=== PATIENT | male | born 1965 | race Caucasian/White ===

== ENCOUNTER 2017-03-11 09:26 | Inpatient (IN) | payer BC, OTHER ==
[2017-03-04 08:27] VITALS: BMI 32.0
--- NOTE | 2017-03-04 09:01 | PAT Medication Instructions ---
Service Date Mar 04, 2017. Current Home Medication List Ascorbic Acid (Vitamin C), 1,000 MG PO QAM Etodolac (Etodolac), 1 TAB PO QAM Naproxen (Aleve), 440 MG PO PRN Medication Instructions For Your Scheduled Surgery Etodolac (Etodolac), 1 TAB PO QAM (stopped already) Naproxen (Aleve), 440 MG PO PRN (stopped already) - Hold the following medications the morning of surgery: Ascorbic Acid (Vitamin C), 1,000 MG PO QAM If you have any questions please call us at [phone] or [phone] ( Marcela) or [phone]
--- NOTE | 2017-03-04 09:34 | DIAGNOSTIC IMAGING REPORT ---
CHEST PREADMISSION(PA/LAT) CLINICAL HISTORY: PAT preoperative evaluation COMPARISON STUDY: No previous studies for comparison. FINDINGS: The bones soft tissues and hemidiaphragms are normal. The cardiomediastinal silhouette is normal. The lungs are clear. The pulmonary vasculature is normal. IMPRESSION: Negative chest. Electronically signed by: Binh Marie M.D. 03/04/2017 9:32 AM Dictated Date/Time: 03/04/2017 9:30 AM
[2017-03-04 10:31] LABS: BASO % 0.5 %; BASO ABS # 0.04 K/uL (0-0.2); COMPLETE YES; EOS % 0.9 %; HEMATOCRIT 44.4 % (42-52); IG% 0.1 %; LYMPH % 18.9 %; LYMPH ABS # 1.42 K/uL (1.2-3.4); MEAN CELL VOLUME 86.4 fL (80-100); MEAN CORPUSCULAR HEMOGLOBIN 30.7 pg (25-34); MEAN CORPUSCULAR HGB CONC 35.6 g/dl (32-36); MEAN PLATELET VOLUME 10.9 fL (7.4-10.4); MONO % 9.7 %; NEUT % 69.9 %; PLATELET COUNT 226 K/uL (130-400); RED BLOOD COUNT 5.14 M/uL (4.7-6.1); WHITE BLOOD COUNT 7.53 K/uL (4.8-10.8)
[2017-03-04 10:33] LABS: URINE APPEARANCE CLEAR (CLEAR); URINE BILIRUBIN NEG (NEG); URINE COLOR YELLOW; URINE NITRITE NEG (NEG); URINE SPECIFIC GRAVITY 1.009 (1.000-1.030); UROBILINOGEN NEG (NEG)
[2017-03-04 10:46] LABS: MANUAL MICROSCOPIC REQUIRED? NO; REVIEW REQ? NO
[2017-03-04 11:22] LABS: CALCIUM 8.7 mg/dl (8.5-10.1); CREATININE 0.83 mg/dl (0.60-1.40); POTASSIUM 4.1 mmol/L (3.5-5.1)
[~2017-03-11] VITALS: Ht 170.2 cm; Wt 93.3 kg
[2017-03-11] VITALS (7 sets, daily range): BP systolic 111–155; BP diastolic 66–97; PULSE 76–102; TEMP 36.4–37.3; O2SAT 94–98; Ht 170.2 cm; Wt 93.3 kg
[~2017-03-11 09:26] MED LIST: ASCO10003 PO; CEFAZOLIN 2000 MG/60 ML D5W IV SCH; ETOD400T PO; FENTANYL CITRATE INJ 50 MCG/1 ML 2 ML VIAL ONE; HEPARIN SOD 5000 UNIT/0.5 ML CARP SQ SCH; HYDROmorphone INJ 2 MG/ML SYR/VIAL ONE; LACTATED RINGER'S 1000ML 1,000 ML IV SCH; LACTATED RINGER'S 1000ML 500 ML IV ONE; MIDAZOLAM HCL 1 MG/ML 2ML VIAL ONE; NAPR1TAB9 PO
--- NOTE | 2017-03-11 11:36 | History & Physical Bridge Note ---
H&P Re-Evaluation Bridge Note: I have examined the patient, reviewed the History & Physical and in the interval since the performance of the History & Physical I have noted the following changes of clinical significance: No changes noted
[2017-03-11] MEDS ORDERED: BUPIVACAINE 0.5 % 5 MG/1 ML MPF 30ML VIAL ONE (11:48)
[2017-03-11] MEDS ORDERED: KETOROLAC TROMETHAMINE 30 MG/ML VIAL IV. PRN ×2 (12:00→15:45)
[2017-03-11] MEDS ORDERED: ATROPINE SULFATE 0.1 MG/ML 5ML SYR IV PRN (12:00)
[2017-03-11] MEDS ORDERED: HYDROmorphone INJ 2 MG/ML SYR/VIAL IV PRN (12:00)
[2017-03-11] MEDS ORDERED: ONDANSETRON INJ 2 MG/ML 2 ML VIAL IV PRN ×2 (12:00→15:45)
[2017-03-11] MEDS ORDERED: LABETALOL HCL IV 5 MG/ML 20ML IV PRN (12:00)
[2017-03-11] MEDS ORDERED: PROMETHAZINE HCL INJ 12.5 MG in SODIUM CHLORIDE 0.9% 50ML 50 ML IV PRN (12:00)
[2017-03-11] MEDS ORDERED: HEPARIN SOD 5000 UNIT/0.5 ML CARP ONE (12:18)
[2017-03-11] MEDS ORDERED: ACETAMINOPHEN 1000 MG/100 ML IV IV ONE (12:33)
[2017-03-11] MEDS ORDERED: PHENYLEPHRINE 100MCG/ML 5ML SYR ONE (13:04)
[2017-03-11] MEDS ORDERED: DEXAMETHASONE SOD INJ 4 MG/ML VIAL ONE (13:04)
[2017-03-11] MEDS ORDERED: ROCURONIUM BROMIDE 10 MG/ML 5 ML VIAL ONE ×2 (13:04→15:27)
[2017-03-11] MEDS ORDERED: NEOSTIGMINE METHYLSULFATE 5 MG/5 ML SYR ONE (13:04)
[2017-03-11] MEDS ORDERED: ONDANSETRON INJ 2 MG/ML 2 ML VIAL ONE (13:04)
[2017-03-11] MEDS ORDERED: GLYCOPYRROLATE INJ 0.2 MG/ML VIAL ONE (13:04)
[2017-03-11] MEDS ORDERED: PROPOFOL IV EMULSION 10 MG/ML 20 ML VIAL IV ONE ×2 (13:04→15:27)
[2017-03-11] MEDS ORDERED: LIDOCAINE HCL 2% 2 ML VIAL (20MG/ML) ONE (13:04)
[2017-03-11] MEDS ORDERED: LABETALOL HCL IV 5 MG/ML 20ML IV ONE (15:16)
--- NOTE | 2017-03-11 15:44 | [facility] Post Operative Brief Note ---
Immediate Operative Summary Operative Date Mar 11, 2017. Pre-Operative Diagnosis cT2b Maria De Jesus 3+4 Prostate Cancer Post-Operative Diagnosis cT2b Bird In Hand 3+4 Prostate Cancer Procedure(s) Performed Robot-Assisted Laparoscopic Radical Retropubic Prostatectomy with Bilateral Pelvic lymph Node Dissection Surgeon Tamiko Elliott MD Physician Practice Coordinator Surgeon(s) Aileen Molina PA-C Estimated Blood Loss 125 ML Fluids (cc crystalloids) 1300 crystalloid Specimens Prostate + seminal vesicles Periprostatic Fat C: Left pelvic lymph node, has clip D: Right pelvic lymph node Drains 18 fr silicone delvalle, 10 cc H2O, #10 CHRISTY LLQ Anesthesia GAET + local Complication(s) None Disposition Recovery Room / PACU
[2017-03-11] MEDS ORDERED: OXYCODONE/ACETAMINOPHEN 7.5-325 TAB PO PRN (15:45)
[2017-03-11] MEDS ORDERED: ACETAMINOPHEN IV 100 ML IV PRN (15:45)
[2017-03-11] MEDS ORDERED: OXYBUTYNIN CHLORIDE 5 MG TAB PO PRN (15:45)
--- NOTE | 2017-03-11 15:56 | Anesthesiology Progress Note ---
Anesthesia Post Op Note Date & Time Mar 11, 2017 at 15:55 Vital Signs Pain Intensity: 0 Vital Signs Past 12 Hours Date Time Temp Pulse Resp B/P Pulse Ox O2 Delivery O2 Flow Rate FiO2 03/11/17 15:47 79 14 113/70 95 Mask 10 03/11/17 15:38 36.2 77 14 102/57 96 Mask 10 03/11/17 09:42 36.8 81 20 155/97 95 Room Air Notes Mental Status: alert / awake / arousable, participated in evaluation Pt Amnestic to Procedure: Yes Nausea / Vomiting: adequately controlled Pain: adequately controlled Airway Patency, RR, SpO2: stable & adequate BP & HR: stable & adequate Hydration State: stable & adequate Anesthetic Complications: no major complications apparent Pt doing well.
[2017-03-11 15:57] LABS: HEMATOCRIT 43.9 % (42-52); MEAN CORPUSCULAR HEMOGLOBIN 31.6 pg (25-34); MEAN PLATELET VOLUME 10.7 fL (7.4-10.4); PLATELET COUNT 209 K/uL (130-400); RED BLOOD COUNT 4.88 M/uL (4.7-6.1); WHITE BLOOD COUNT 17.38 K/uL (4.8-10.8)
[2017-03-11 16:00] LABS: MEAN CORPUSCULAR HGB CONC 35.1 g/dl (32-36)
[2017-03-11 16:38] LABS: BUN/CREATININE RATIO 15.3 (10-20); POTASSIUM 4.5 mmol/L (3.5-5.1)
[2017-03-11] MEDS: LACTATED RINGER'S 1000ML 1,000 ML IV SCH ×2 (16:50→22:43)
[2017-03-11 17:20] LABS: CALCIUM 8.5 mg/dl (8.5-10.1)
[2017-03-11 17:50] LABS: PARTIAL THROMBOPLASTIN RATIO 0.9; PROTHROMBIN TIME (PATIENT) 10.6 SECONDS (9.0-12.0)
--- NOTE | 2017-03-11 18:24 | OPERATIVE REPORT ---
DATE OF OPERATION: 03/11/2017 PREOPERATIVE DIAGNOSIS: Clinical T2 [place] 3+4 adenocarcinoma of the prostate. POSTOPERATIVE DIAGNOSIS: Same. PROCEDURE: Robotic-assisted laparoscopic radical retropubic prostatectomy with bilateral pelvic lymph node dissection and a right-sided nerve sparing dissection. SURGEON: Dr. Reji Elliott. ASSISTANCE COORDINATOR: PHILIP Gurrola ANESTHESIA: General anesthesia with endotracheal intubation plus local at port sites. ESTIMATED BLOOD LOSS: 125 mL. IV FLUIDS: 1300 mL of crystalloid. SPECIMENS SENT TO PATHOLOGY: Prostate plus seminal vesicles, periprostatic fat, left pelvic lymph node packet with clip in place and right pelvic lymph node packet. DRAINS LEFT IN PLACE: Include a 18 Lao silicone catheter with 10 mL of sterile water in the balloon to gravity drainage and #10 CHRISTY drain in the left lower quadrant to bulb drainage. FINDINGS: Watertight anastomosis, small prostate, no evidence of vascular or bowel injury after completion of the case with excellent hemostasis. BRIEF HISTORY: Mr. Lora is a pleasant 51-year-old male who I have seen as an outpatient in consultation for a new diagnosis of [place] 3+4 prostate cancer and a palpable left-sided nodule on his prostate gland. Prostate biopsies demonstrated Maria De Jesus 3+4 disease on the left side of the gland. Please see H\T\P for further details. After discussion of risks and benefits of various forms of management, he has decided upon a robotic prostatectomy to manage his disease. SCDs and subcutaneous heparin are used for DVT prophylaxis and intravenous cephalosporins for antibiotic coverage. Informed consent reviewed with the patient preoperatively today. DESCRIPTION OF PROCEDURE: The patient was properly identified and brought to the operative suite after identification of appropriate consent on the chart, general anesthesia with endotracheal intubation was initiated and the patient was prepped and draped in a standard fashion for this procedure. time cycle operator-out procedure was followed. All port sites were anesthetized with local prior to incision. A 12 mm supraumbilical port was made and using a visual obturator, abdomen was entered under direct visualization using a 0 degrees laparoscope. Abdomen was insufflated to 15 mmHg and noted to be free of any injuries on placement of the port. Normal intra-abdominal anatomy with a history of right inguinal hernia repair was appreciated. Ports were placed for a 4th arm robotic template including 2 left-sided 7 mm ports, a right-sided 7 mm robotic port, and a 5 and 12 mm clerical assistant port. The patient was placed into Trendelenburg and robot was brought in and docked. A 0 degrees lens was used to drop the bladder down to the level of the pubic bone. Prostate was defatted and periprostatic fat was sent for pathologic analysis. Endopelvic fascia was sharply entered on both sides and dissection was carried out to the level of the apex of the prostate. Dorsal vein was skeletonized and then controlled using 0 Vicryl suture on a CT1 needle in a [id number] fashion. Attention was turned to the bladder neck which was placed on traction using the fourth arm and a 30 degree down lens. This was divided down to the level of the patient's Dennis catheter, which was then used for anterior traction on the prostate gland. The patient was noted to have a relatively thickened muscular bladder neck with no median lobe component or other variations in anatomy. The posterior bladder neck was divided and dropped until the vas deferens were encountered in the midline. At this point, the prostatic pedicles and inferior vasculature of the bladder were controlled using cold Weck clips and cold scissors. Nerve sparing dissection was initiated on the right hand side. On the left hand side, a plane leaving in situ approximately 50% of the neurovascular bundle was defined using Weck clips. The vas deferens were divided and used for traction. Seminal vesicles, noted to be quite redundant were dissected free on both sides down to the level of the tips. Cold scissors were then used to drop the rectum up to the level of the apex of the prostate gland. Nerve sparing dissection was completed on the right hand side up to the level of the apex and nerve sparing dissection was completed on the right hand side up to the level of the apex and dissection was completed on the left hand side as well. Attention was turned to the dorsal vein which was then divided using hot scissors. A well defined urethra was skeletonized and then divided. Rectourethralis fibers were also divided and the prostate was brought up into the abdominal cavity and placed within an EndoCatch bag for retrieval at the end of the case. Excellent hemostasis within the confines of the pelvis was appreciated. Rectum was insufflated under saline irrigation and noted to be free of any unrecognized injuries. Attention was turned to the pelvic lymph node dissection component of the case. The nodes over the external iliac artery and vein were dissected free and the obturator canal was emptied using the external iliac vein, pelvic sidewall and the obturator nerve for the confines of dissection. Clips and cautery were used as necessary for control of vessels and large lymphatics. Care was taken to avoid any injury or irritation to the obturator nerve, which was noted to be intact at the end of the case on both sides after completion of dissection. Both sides were completed in a similar fashion and left-sided lymph node packet was tagged using a clip for identification after extraction. Both lymph node packets were placed within the second EndoCatch bag for retrieval after completion. Attention was then turned to the pelvis where again excellent hemostasis was appreciated. A circumferential running anastomosis was performed using a double armed V-Loc suture to the urethra. Again, a continent bladder neck aperture was appreciated. Care was taken to ensure that the mucosa was well included in the patient's muscular bladder neck closure. Dennis catheter easily entered the bladder throughout the case without resistance or difficulties and a silicone catheter was visualized entering the bladder prior to completion of the anastomosis. Anastomosis was tested with greater than 120 mL of sterile irrigant and noted to be watertight. 10 mL of sterile water were placed within the balloon. Fourth arm was removed and #10 CHRISTY drain was brought in via the fourth arm port. This was placed within the confines of the pelvis while avoiding placing it directly over the anastomosis. Robotic instruments were removed and robot was dedocked. Camera was brought in via the clerical assistant port and string to the EndoCatch bag was brought up through the supraumbilical incision. This was enlarged sufficiently to allow for removal of the specimens. Supraumbilical incision was closed at the fascial level using 0 Vicryl suture on a UR-5 and UR-6 needle. Skin incisions were closed using Monocryl and Dermabond and the drain was secured in place using a 2-0 silk suture. Excess carbon dioxide gas had been removed from the abdomen prior to completion of the closure. Anesthesia was reversed. The patient was transferred to recovery room in stable condition. FOLLOWUP CARE: The patient will be admitted to the floor for standard postoperative management. I attest to the content of the Intraoperative Record and any orders documented therein. Any exceptio ns are noted below.
[2017-03-11] MEDS: CEFAZOLIN IV 2,000 MG in DEXTROSE 5% 50ML 50 ML IV SCH (20:06)
[2017-03-11] MEDS: DOCUSATE SODIUM 100 MG CAP PO SCH (21:00)
[2017-03-11] MEDS: HEPARIN SOD 5000 UNIT/0.5 ML CARP SQ SCH (22:45)
[2017-03-11] MEDS: HYDROmorphone INJ 1 MG/ML SYR IV PRN (23:48)
[2017-03-12] MEDS: HYDROmorphone INJ 1 MG/ML SYR IV PRN (03:21)
[2017-03-12 04:00] VITALS: BP 117/76; PULSE 66; TEMP 36.8; O2SAT 97
[2017-03-12] MEDS: CEFAZOLIN IV 2,000 MG in DEXTROSE 5% 50ML 50 ML IV SCH ×2 (04:09→12:15)
[2017-03-12] MEDS: LACTATED RINGER'S 1000ML 1,000 ML IV SCH ×2 (04:09→12:15)
[2017-03-12 07:48] VITALS: BP 126/74; PULSE 67; TEMP 36.8; O2SAT 93
[2017-03-12 07:54] LABS: BASO % 0.1 %; BASO ABS # 0.02 K/uL (0-0.2); COMPLETE YES; EOS % 0.1 %; HEMATOCRIT 42.3 % (42-52); IG% 0.3 %; LYMPH % 10.3 %; LYMPH ABS # 1.57 K/uL (1.2-3.4); MEAN CELL VOLUME 90.4 fL (80-100); MEAN CORPUSCULAR HEMOGLOBIN 30.1 pg (25-34); MEAN CORPUSCULAR HGB CONC 33.3 g/dl (32-36); MEAN PLATELET VOLUME 10.5 fL (7.4-10.4); MONO % 9.7 %; NEUT % 79.5 %; PLATELET COUNT 196 K/uL (130-400); RED BLOOD COUNT 4.68 M/uL (4.7-6.1); WHITE BLOOD COUNT 15.19 K/uL (4.8-10.8)
--- NOTE | 2017-03-12 08:13 | Anesthesiology Progress Note ---
Anesthesia Post Op Note Date & Time Mar 12, 2017 at 08:12 Vital Signs Pain Intensity: 6.0 Vital Signs Past 12 Hours Date Time Temp Pulse Resp B/P Pulse Ox O2 Delivery O2 Flow Rate FiO2 03/12/17 07:48 36.8 67 16 126/74 93 Room Air 03/12/17 04:00 36.8 66 16 117/76 97 Room Air 03/11/17 23:50 Room Air 03/11/17 23:36 37.1 76 18 117/71 98 Room Air Notes Mental Status: alert / awake / arousable, participated in evaluation Pt Amnestic to Procedure: Yes Nausea / Vomiting: adequately controlled Pain: adequately controlled Airway Patency, RR, SpO2: stable & adequate BP & HR: stable & adequate Hydration State: stable & adequate Anesthetic Complications: no major complications apparent
[2017-03-12 08:37] LABS: CREATININE 0.77 mg/dl (0.60-1.40); POTASSIUM 3.8 mmol/L (3.5-5.1)
--- NOTE | 2017-03-12 08:47 | Progress Note ---
Subjective Date of Service: Mar 12, 2017. Subjective Pt evaluation today including: conversation w/ patient, physical exam, chart review, lab review, review of inpatient medication list Pain: Mild, incisional PO Intake: Keisha clears, no emesis Voiding: delvalle catheter in place (urine clear) 51 yo male POD#1 s/p RALRP, BPLND. Intraop findings reviewed. Sat at side of bed yesterday, no ambulation yet. Labwork yesterday and this AM reviewed - wnl. Acceptable CHRISTY output, no other complaints. Review of Systems Constitutional: No chills, No fever Eyes: No worsening of vision Respiratory: No shortness of breath, No sputum, No wheezing Cardiac: No chest pain Abdomen: No nausea, No vomiting Male : + see HPI, No hematuria Neurologic: No memory loss, No paralysis Psychiatric: No depression symptoms, No insomnia Heme: No swollen lymph nodes Skin: No color change, No new/changing skin lesions Objective Vital Signs Date Time Temp Pulse Resp B/P Pulse Ox O2 Delivery O2 Flow Rate FiO2 03/12/17 07:48 36.8 67 16 126/74 93 Room Air 03/12/17 04:00 36.8 66 16 117/76 97 Room Air 03/11/17 23:50 Room Air 03/11/17 23:36 37.1 76 18 117/71 98 Room Air 03/11/17 19:33 36.8 96 16 111/66 94 Room Air 03/11/17 18:36 36.4 102 16 121/74 95 4.0 03/11/17 17:33 36.5 97 16 118/75 96 Nasal Cannula 4.0 03/11/17 17:03 36.4 92 16 118/77 94 Nasal Cannula 4.0 03/11/17 16:30 Nasal Cannula 4.0 03/11/17 16:30 Nasal Cannula 4.0 03/11/17 16:30 37.3 85 16 119/79 95 Nasal Cannula 2.0 03/11/17 16:15 36.4 85 16 142/81 95 Nasal Cannula 2 03/11/17 16:05 36.4 67 16 120/78 95 Nasal Cannula 2 03/11/17 15:55 78 14 131/77 95 Mask 10 03/11/17 15:47 79 14 113/70 95 Mask 10 03/11/17 15:38 36.2 77 14 102/57 96 Mask 10 03/11/17 09:42 36.8 81 20 155/97 95 Room Air Physical Exam General Appearance: WD/WN, no apparent distress ENT: hearing grossly normal Neck: supple, no adenopathy Respiratory/Chest: no respiratory distress, no accessory muscle use Cardiovascular: no JVD Abdomen: non tender, soft, + pertinent finding (inc c/d/i) Neurologic/Psychiatric: alert, oriented x 3 Skin: normal color Laboratory Results Last 24 Hours Test 03/11/17 15:47 03/11/17 17:20 03/12/17 07:22 White Blood Count 17.38 K/uL 15.19 K/uL Red Blood Count 4.88 M/uL 4.68 M/uL Hemoglobin 15.4 g/dL 14.1 g/dL Hematocrit 43.9 % 42.3 % Mean Corpuscular Volume 90.0 fL 90.4 fL Mean Corpuscular Hemoglobin 31.6 pg 30.1 pg Mean Corpuscular Hemoglobin Concent 35.1 g/dl 33.3 g/dl RDW Standard Deviation 40.2 fL 39.4 fL RDW Coefficient of Variation 12.2 % 12.1 % Platelet Count 209 K/uL 196 K/uL Mean Platelet Volume 10.7 fL 10.5 fL Sodium Level 139 mmol/L 138 mmol/L Potassium Level 4.5 mmol/L 3.8 mmol/L Chloride Level 105 mmol/L 102 mmol/L Carbon Dioxide Level 26 mmol/L 30 mmol/L Anion Gap 8.0 mmol/L 6.0 mmol/L Blood Urea Nitrogen 15 mg/dl 10 mg/dl Creatinine 1.00 mg/dl 0.77 mg/dl Est Creatinine Clear Calc Drug Dose 94.1 ml/min 122.2 ml/min Estimated GFR () 99.8 120.9 Estimated GFR (Non- 86.2 104.3 BUN/Creatinine Ratio 15.3 13.0 Random Glucose 119 mg/dl 112 mg/dl Calcium Level 8.5 mg/dl Prothrombin Time 10.6 SECONDS Prothromb Time International Ratio 1.0 Activated Partial Thromboplast Time 22.6 SECONDS Partial Thromboplastin Ratio 0.9 Neutrophils (%) (Auto) 79.5 % Lymphocytes (%) (Auto) 10.3 % Monocytes (%) (Auto) 9.7 % Eosinophils (%) (Auto) 0.1 % Basophils (%) (Auto) 0.1 % Neutrophils # (Auto) 12.07 K/uL Lymphocytes # (Auto) 1.57 K/uL Monocytes # (Auto) 1.47 K/uL Eosinophils # (Auto) 0.01 K/uL Basophils # (Auto) 0.02 K/uL Immature Granulocyte % (Auto) 0.3 % Immature Granulocyte # (Auto) 0.05 K/uL Assessment and Plan A/P 51 yo male POD#1 s/p RALRP, BPLND. Doing well. Advance diet and activity today. Would anticipate DC CHRISTY and DC home after lunch if does well. DC instructions reviewed. Discharge planning: home
[2017-03-12] MEDS ORDERED: CLC100 PO (08:53)
[2017-03-12] MEDS ORDERED: CIPR-255 PO (08:53)
[2017-03-12] MEDS ORDERED: OXYC7.5T62 PO (08:53)
[2017-03-12] MEDS ORDERED: DTR5 PO (08:53)
--- NOTE | 2017-03-12 08:55 | Discharge Instructions ---
Discharge Instructions Date of Service Mar 12, 2017. Admission Reason for Admission: Prostate Cancer Discharge Discharge Diagnosis / Problem: Prostate Cancer Discharge Goals Goal(s): Improve function, Improve disease control, Prevent Disease Progression Activity Recommendations Activity Limitations: per Instructions/Follow-up section 1. Do not lift >15lbs x 6 weeks. 2. No heavy exercise x 6 weeks. You may engage in light activity such as walking and stairs as tolerated. 3. No sexual intercourse until cleared by Dr. Elliott or Dr. Otero. 4. [address] not drive x [address] while taking narcotics. 5. Finish all of the antibiotic you have been prescribed. 6. Immediately call our office at [phone] if your catheter is removed for any reason. 7. Follow-up as scheduled. Please call our office at [phone] if you need to reschedule for any reason. . . Current Hospital Diet Hospital Diet(s): Regular Diet Discharge Diet Recommended Diet: Regular Diet Procedures Procedures Performed: Robot-Assisted Laparoscopic Radical Retropubic Prostatectomy with Bilateral Pelvic lymph Node Dissection Pending Studies Studies pending at discharge: no Medical Emergencies . Who to Call and When: Medical Emergencies: If at any time you feel your situation is an emergency, please call 911 immediately. . Non-Emergent Contact Non-Emergency issues call your: Urologist Call Non-Emergent contact if: temperature is above 101.5 . . "Provider Documentation" section prepared by [employer]. . VTE Core Measure Inpt VTE Proph given/why not?: Unfractionated heparin SQ, SCD's [place] Drug Monitoring Program Drug Monitoring Findings: No issues found
[2017-03-12] MEDS: DOCUSATE SODIUM 100 MG CAP PO SCH ×2 (09:00→09:50)
[2017-03-12 09:02] LABS: CALCIUM 8.7 mg/dl (8.5-10.1)
[2017-03-12] MEDS: HEPARIN SOD 5000 UNIT/0.5 ML CARP SQ SCH (09:43)
[2017-03-12 11:52] VITALS: BP 126/74; PULSE 67; TEMP 36.8; O2SAT 93
[2017-03-12 12:25] VITALS: BP 123/72; PULSE 73; TEMP 36.3; O2SAT 95
--- NOTE | 2017-03-22 11:49 | DISCHARGE SUMMARY ---
ADMITTING DIAGNOSIS: Clinical T2 Maria De Jesus 3+4 adenocarcinoma of the prostate. DISCHARGE DIAGNOSIS: Same. PROCEDURES: Include a robotic-assisted laparoscopic radical retropubic prostatectomy with bilateral pelvic lymph node dissection on the 03/11/2017. ADMITTING ATTENDING: Dr. Reji Elliott. COMPLICATIONS: None. BRIEF HISTORY: Mr. Lora is a pleasant 51-year-old male who has a new diagnosis of prostate cancer. After discussion of risks and benefits of various forms of intervention, he has decided upon a robotic prostatectomy to manage this disease. Please see H\T\P for further details. He is being admitted for this purpose. HOSPITAL COURSE: The patient was admitted on 03/11/2017 after an uncomplicated robotic prostatectomy. Please see operative report for further details. Over the following day, the patient's diet and activity were rapidly advanced. Postoperative day #1, he was ambulating in the hallways, tolerating a regular diet and comfortable on oral pain medication. A postoperative lab work was stable. Of note, the patient's CHRISTY drain continued to put out relatively high amounts averaging anywhere from 35-130 a shift. The patient was somewhat anxious regarding this and therefore decision was made to discharge the patient home with a CHRISTY in place. CHRISTY fluid creatinine was consistent with serous fluid. I suspect some lymph drainage after the patient's lymph node dissection. Please see progress notes for further details. DISCHARGE INSTRUCTIONS: Please see discharge instruction sheet and medication list for further details. Outpatient appointment for a trial of void and CHRISTY drain removal are confirmed. The patient is instructed to contact us should he note any fevers, chills, nausea, vomiting or other significant difficulties in the postoperative period. Pathology review is also confirmed.
== END 2017-03-12 14:30 | disposition home or self-care (01) | DRG 708 ==
LOC: ENRESERVTM → ENRESERVDT → C.ACU 09:26 → C.MSW 09:49
PROVIDERS: ADMIT Urology; ATTEND Urology
PROC: 0VT04ZZ Resection of Prostate, Percutaneous Endoscopic Approach (ICD-10-PCS; principal; 2017-03-11 11:00)
PROC: 8E0W4CZ Robotic Assisted Procedure of Trunk Region, Percutaneous Endoscopic Approach (ICD-10-PCS; principal; 2017-03-11 11:00)
PROC: 07BC4ZX Excision of Pelvis Lymphatic, Percutaneous Endoscopic Approach, Diagnostic (ICD-10-PCS; principal; 2017-03-11 11:00)
PROC: 0VT34ZZ Resection of Bilateral Seminal Vesicles, Percutaneous Endoscopic Approach (ICD-10-PCS; principal; 2017-03-11 11:00)
DX: C61 Malignant neoplasm of prostate (principal); G89.29 Other chronic pain; M54.9 Dorsalgia, unspecified; E66.9 Obesity, unspecified; Z68.32 Body mass index [BMI] 32.0-32.9, adult; Z72.0 Tobacco use; Z80.42 Family history of malignant neoplasm of prostate; Z79.1 Long term (current) use of non-steroidal anti-inflammatories (NSAID)

== ENCOUNTER → 2017-03-15 | Outpatient (CLI) | payer BC ==
[~2017-03-15] MED LIST changes: -CEFAZOLIN 2000 MG/60 ML D5W IV SCH; +CIPR-255 PO; +CLC100 PO; +DTR5 PO; -FENTANYL CITRATE INJ 50 MCG/1 ML 2 ML VIAL ONE; -HEPARIN SOD 5000 UNIT/0.5 ML CARP SQ SCH; -HYDROmorphone INJ 2 MG/ML SYR/VIAL ONE; -LACTATED RINGER'S 1000ML 1,000 ML IV SCH; -LACTATED RINGER'S 1000ML 500 ML IV ONE; -MIDAZOLAM HCL 1 MG/ML 2ML VIAL ONE; +OXYC7.5T62 PO
== END | disposition home or self-care (01) ==
LOC: C.LABSPEC 17:30
PROVIDERS: ATTEND Nurse Practitioner Family
DX: C61 Malignant neoplasm of prostate (principal)